=== PATIENT | female | born 1950 | race Caucasian/White ===

== ENCOUNTER 2023-08-26 12:26 | Outpatient (CLI) | payer MEDICARE ==
[2023-08-26 15:36] LABS: Bilirubin Neg (Negative); Blood, Urine 250 (Negative); Clarity Clear (Clear); Glucose, Urine (Dipstick) Normal (Negative); Ketone, Urine Negative (Negative); Leukocyte 25 (Negative); Nitrite Negative (Negative); Protein, Urine (Dipstick) 15 mg/dl (Neg-Trace); Specific Gravity, Urine 1.005 (1.005-1.030); Urobilinogen Normal mg/dL (Less than 2)
[2023-08-26 15:40] LABS: Hematocrit 34.5 % (34.9-44.5); Hemoglobin 11.7 g/dL (12.0-15.5); Mean Corpuscular HGB CONC 33.9 g/dL (32.0-36.0); Mean Corpuscular Hemoglobin 31.6 pg (27.0-33.0); Mean Corpuscular Volume 93.2 fl (81.6-98.3); Mean Platelet Volume 9.6 fl (7.4-10.4); Platelet Count 278 10x3/uL (150-450); RBC Distribution Width 14.3 % (11.5-14.5); White Blood Cell (WBC) Count 7.4 10x3/uL (3.5-10.5)
[2023-08-26 15:56] LABS: PTT 25.6 sec (22.0-33.0); Prothrombin Time 10.5 sec (9.5-12.1)
[2023-08-26 16:03] LABS: Bacteria/HPF Rare-Few HPF (None Seen); RBC/HPF 21-50 HPF (0-3); Squamous Epithelial 0-3 HPF (0-3); WBC/HPF 0-3 HPF (0-3)
[2023-08-26 16:04] LABS: Anion Gap 14 mmol/L (10-20); BUN (Urea Nitrogen) 14 mg/dL (9.8-20.1); Calc. Creatinine Clearance 0 mL/min (70-130); Calcium 9.7 mg/dL (7.8-10.44); Carbon Dioxide 26 mmol/L (23-31); Chloride 104 mmol/L (98-107); Estimated GFR 67; Glucose 88 mg/dL (83-110); Sodium 140 mmol/L (136-145)
== END 2023-08-26 12:27 | disposition home or self-care (01) ==
LOC: LABBT 12:26
PROVIDERS: ATTEND Urology
DX: Z01.818 Encounter for other preprocedural examination (principal); N32.89 Other specified disorders of bladder; R91.8 Other nonspecific abnormal finding of lung field; R31.29 Other microscopic hematuria; Z87.891 Personal history of nicotine dependence
CPT/HCPCS: 80048; 85027; 85610; 85730; 86850; 86900; 86901; 87086; 93005; 93010

== ENCOUNTER 2023-09-08 06:24 | Day surgery (SDC) | payer MEDICARE ==
[2023-08-26 13:24] VITALS: BMI 39.3
[2023-09-08] MEDS ORDERED: LevoFLOXacin D5W 500 mg (100 mL) BAG ONE (06:59)
[2023-09-08] MEDS ORDERED: mitoMYcin 40 MG in Sodium Chloride 0.9% 40 ML I-VESIC SCH (07:15)
[2023-09-08] MEDS ORDERED: SODIUM CHLORIDE 0.9% I-VESIC SCH (07:45)
[2023-09-08] MEDS ORDERED: MITOMYCIN I-VESIC SCH (07:45)
[2023-09-08] MEDS ORDERED: Iopamidol 30 ML ONE (08:43)
[2023-09-08] MEDS ORDERED: fentaNYL PF 100 MCG/2 ML SYRINGE ONE ×2 (08:56→10:27)
[2023-09-08] MEDS ORDERED: Rocuronium Bromide 10 MG/ML (10ML VIAL) ONE (08:56)
[2023-09-08] MEDS ORDERED: PROPOFOL 20 ML ONE (08:56)
[2023-09-08] MEDS ORDERED: Lidocaine 1% PF 5 ML VIAL ONE (08:56)
[2023-09-08] MEDS ORDERED: Ondansetron PF 4 MG/2 ML Vial ONE (09:33)
[2023-09-08] MEDS ORDERED: Dexamethasone 4 mg/ml Vial ONE (09:34)
[2023-09-08] MEDS ORDERED: SUGAMMADEX SODIUM 200 MG/2 ML VIAL ONE (09:40)
[2023-09-08] MEDS ORDERED: Hyoscyamine SL 0.125 MG TAB ONE (10:32)
[2023-09-08] MEDS ORDERED: Oxybutynin 5 MG TAB ONE (10:32)
[2023-09-08] MEDS ORDERED: Phenazopyridine HCl 100 MG TAB ONE (10:46)
== END 2023-09-08 14:47 | disposition home or self-care (01) ==
LOC: SDC 06:24
PROVIDERS: ATTEND Urology
PROC: 0TBB8ZZ Excision of Bladder, Via Natural or Artificial Opening Endoscopic (ICD-10-PCS; principal; 2023-09-08)
DX: C67.9 Malignant neoplasm of bladder, unspecified (principal); R31.29 Other microscopic hematuria; N32.89 Other specified disorders of bladder; D64.9 Anemia, unspecified; F41.9 Anxiety disorder, unspecified; M19.90 Unspecified osteoarthritis, unspecified site; E78.00 Pure hypercholesterolemia, unspecified; R91.8 Other nonspecific abnormal finding of lung field; I10 Essential (primary) hypertension; J34.89 Other specified disorders of nose and nasal sinuses; M81.0 Age-related osteoporosis without current pathological fracture; E07.9 Disorder of thyroid, unspecified; J44.9 Chronic obstructive pulmonary disease, unspecified; K50.90 Crohn's disease, unspecified, without complications; Z98.51 Tubal ligation status; Z98.890 Other specified postprocedural states; Z79.82 Long term (current) use of aspirin; Z79.899 Other long term (current) drug therapy; Z87.891 Personal history of nicotine dependence; Z88.8 Allergy status to other drugs, medicaments and biological substances; Z87.898 Personal history of other specified conditions
CPT/HCPCS: 52235; 86850; 86900; 86901; J9280; 88305; 88307; 88342; J1100; J1956; J2405; J2704; Q9967

== ENCOUNTER 2024-02-24 10:25 | Outpatient (CLI) | payer MEDICARE | END 2024-02-24 10:26 | disposition home or self-care (01) | LOC: SCSMRI 10:25 | PROVIDERS: ATTEND Student in an Organized Health Care Education/Training Program | DX: R51.9 Headache, unspecified (principal); R90.82 White matter disease, unspecified; I73.9 Peripheral vascular disease, unspecified | CPT/HCPCS: 36415; 70553; 76376; 82565 ==

== ENCOUNTER 2024-03-21 08:29 | Outpatient (CLI) | payer MEDICARE | END 2024-03-21 08:30 | disposition home or self-care (01) | LOC: BICCT 08:29 | PROVIDERS: ATTEND Urology | DX: R31.29 Other microscopic hematuria (principal); R59.0 Localized enlarged lymph nodes | CPT/HCPCS: 74178 ==

== ENCOUNTER 2024-03-22 11:57 | Outpatient (CLI) | payer MEDICARE ==
[2024-03-22 13:24] LABS: #Basophils 0.03 10x3/uL (0.0-0.2); %Basophils 0.5 % (0.0-1.0); %Lymphocytes 22.8 % (21.0-51.0); %Monocytes 11.4 % (0.0-10.0); %Neutrophils 63.6 % (42.0-75.0); Hematocrit 37.5 % (36.0-47.0); Hemoglobin 12.5 g/dL (12.0-16.0); Mean Corpuscular HGB CONC 33.3 g/dL (32.0-36.0); Mean Corpuscular Volume 89.9 fL (78.0-98.0); Mean Platelet Volume 9.2 fL (7.4-10.4); Platelet Count 289 10x3/uL (130-400); RBC Distribution Width 12.9 % (11.5-14.5); Red Blood Cell (RBC) Count 4.17 mill/uL (4.20-5.40)
[2024-03-22 13:42] LABS: Bacteria/HPF None Seen HPF (None Seen); Bilirubin Negative (Negative); Blood, Urine 2+ (Negative); Clarity Turbid (Clear); Glucose, Urine (Dipstick) Normal (Negative); Ketone, Urine Negative (Negative); Leukocyte 75 Leu/uL (Negative); Nitrite Negative (Negative); Protein, Urine (Dipstick) 20 mg/dL (Neg-Trace); RBC/HPF 21-50 HPF (0-3); Specific Gravity, Urine 1.015 (1.002-1.036); Urobilinogen Normal mg/dL (Less than 2); WBC/HPF 21-50 HPF (0-3); pH, Urine 5.5 (5.0-9.0)
[2024-03-22 13:47] LABS: PTT 24.6 sec (22.9-36.1)
[2024-03-22 13:48] LABS: Anion Gap 14 mmol/L (10-20); BUN (Urea Nitrogen) 14 mg/dL (9.8-20.1); Calc. Creatinine Clearance 0 mL/min (70-130); Calcium 9.5 mg/dL (7.8-10.44); Carbon Dioxide 24 mmol/L (23-31); Chloride 105 mmol/L (98-107); Estimated GFR 76; Glucose 81 mg/dL (83-110); Potassium 4.3 mmol/L (3.5-5.1); Prothrombin Time 12.9 sec (12.0-14.7); Sodium 139 mmol/L (136-145)
== END 2024-03-22 11:58 | disposition home or self-care (01) ==
LOC: LABBT 11:57
PROVIDERS: ATTEND Urology
DX: Z01.818 Encounter for other preprocedural examination (principal); C67.8 Malignant neoplasm of overlapping sites of bladder; R31.29 Other microscopic hematuria; R91.8 Other nonspecific abnormal finding of lung field; N30.91 Cystitis, unspecified with hematuria; N39.41 Urge incontinence; Z87.891 Personal history of nicotine dependence; Z87.898 Personal history of other specified conditions
CPT/HCPCS: 80048; 81001; 85025; 85610; 85730; 87086; 93005; 93010

== ENCOUNTER 2024-04-05 06:18 | Day surgery (SDC) | payer MEDICARE ==
[2024-03-22 12:26] VITALS: BMI 38.0
[2024-04-05] MEDS ORDERED: LevoFLOXacin 500 mg/D5W 500 MG in Premix 1 BAG IVPB SCH (07:00)
[2024-04-05] MEDS ORDERED: Dexamethasone 4 mg/ml Vial ONE (07:28)
[2024-04-05] MEDS ORDERED: Midazolam HCl 2 mg/2 ml Vial ONE (07:28)
[2024-04-05] MEDS ORDERED: Rocuronium Bromide 10 MG/ML (10ML VIAL) ONE (07:28)
[2024-04-05] MEDS ORDERED: Lidocaine 2% PF 5 ML VIAL ONE (07:28)
[2024-04-05] MEDS ORDERED: PROPOFOL 20 ML ONE (07:28)
[2024-04-05] MEDS ORDERED: fentaNYL PF 100 MCG/2 ML SYRINGE ONE ×3 (07:28→10:05)
[2024-04-05] MEDS ORDERED: Ondansetron PF 4 MG/2 ML Vial ONE (07:28)
[2024-04-05] MEDS ORDERED: Lidocaine 2% 6 ML (Jelly) SYR ONE (07:28)
[2024-04-05] MEDS ORDERED: SUGAMMADEX SODIUM 200 MG/2 ML VIAL ONE (09:06)
[2024-04-05] MEDS ORDERED: Furosemide 20 MG (2 mL) VIAL ONE (09:12)
[2024-04-05] MEDS ORDERED: Phenazopyridine HCl 100 MG TAB ONE (09:28)
[2024-04-05] MEDS ORDERED: Oxybutynin 5 MG TAB ONE (09:28)
[2024-04-05] MEDS ORDERED: Promethazine HCl 25 MG/ML VIAL ONE (09:42)
== END 2024-04-05 15:08 | disposition home or self-care (01) ==
LOC: SDC 06:18
PROVIDERS: ATTEND Urology
PROC: 0TBB8ZZ Excision of Bladder, Via Natural or Artificial Opening Endoscopic (ICD-10-PCS; principal; 2024-04-05)
DX: C67.0 Malignant neoplasm of trigone of bladder (principal); R59.0 Localized enlarged lymph nodes; R91.8 Other nonspecific abnormal finding of lung field; I25.10 Atherosclerotic heart disease of native coronary artery without angina pectoris; E07.9 Disorder of thyroid, unspecified; F41.9 Anxiety disorder, unspecified; J44.9 Chronic obstructive pulmonary disease, unspecified; J84.9 Interstitial pulmonary disease, unspecified; Z87.891 Personal history of nicotine dependence; Z98.51 Tubal ligation status; Z78.0 Asymptomatic menopausal state; Z88.8 Allergy status to other drugs, medicaments and biological substances; Z79.890 Hormone replacement therapy; Z79.82 Long term (current) use of aspirin; Z79.899 Other long term (current) drug therapy
CPT/HCPCS: 52235; 86850; 86900; 86901; A4333; J1100; J1940; J1956; J2250; J2405; J2550; J2704; J9280; 88305

== ENCOUNTER 2024-05-02 11:45 | Outpatient (CLI) | payer OTHER | END 2024-05-02 11:46 | disposition home or self-care (01) | LOC: PET 11:45 | PROVIDERS: ATTEND Urology | DX: C67.8 Malignant neoplasm of overlapping sites of bladder (principal); R59.0 Localized enlarged lymph nodes | CPT/HCPCS: 78815; A9552 ==